=== PATIENT | male | born 1950 | race Caucasian/White ===

== ENCOUNTER 2020-02-17 19:35 | Emergency (ER) | payer MEDICARE ==
--- NOTE | 2020-02-17 20:21 | EDM.PDOC ---
ED HPI GENERAL MEDICAL PROBLEM - General Chief Complaint: Lower Extremity Injury/Pain Stated Complaint: slipped on ICE Time Seen by Provider: 02/17/20 20:10 Source of Information: Reports: Patient History Limitations: Reports: No Limitations - History of Present Illness INITIAL COMMENTS - FREE TEXT/NARRATIVE: This patient presents to the ED for evaluation of hip pain. He states he slipped on the ice and fell onto his left hip. 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 He is complaining of pain but has been able to bear weight. He denies other injuries; states he did not hit his head or lose consciousness. He denies recent illnesses including fever, cough, sore throat. He also denies nausea, vomiting, diarrhea. Left Hip Pain Score (Numeric/FACES): 7 - Related Data Allergies Allergy/AdvReac Type Severity Reaction Status Date / Time No Known Allergies Allergy Verified 02/17/20 20:18 Home Meds: Home Meds NK [No Known Home Meds] 02/17/20 [History] Review of Systems - Review of Systems Review Of Systems: Comprehensive ROS is negative, except as noted in HPI. ED EXAM, GENERAL - Physical Exam Exam: See Below Exam Limited By: No Limitations General Appearance: Alert, WD/WN, No Apparent Distress Eye Exam: Bilateral Eye: PERRL Ears: Normal External Exam Nose: Normal Inspection Throat/Mouth: Normal Inspection Head: Atraumatic, Normocephalic Neck: Normal Inspection Respiratory/Chest: No Respiratory Distress Extremities: Other (tenderness with palpation over greater trochanter left hip; no swelling, discoloration, or deformity, distal CMS intact. ) Course - Vital Signs Last Recorded V/S: Last Vital Signs Temp 36.6 C 02/17/20 19:42 Pulse 109 H 02/17/20 19:42 Resp 18 02/17/20 19:42 BP 109/75 02/17/20 19:42 Pulse Ox 99 02/17/20 19:42 - Orders/Labs/Meds Orders: Active Orders 24 hr Category Date Time Status Hip Min 2V or 3V w Pelvis Lt [CR] Stat Exams 02/17/20 20:18 Taken - Re-Assessments/Exams Free Text/Narrative Re-Assessment/Exam: 02/17/20 21:54 This patient presents for evaluation of left hip pain after a fall. CMS is intact distally in the extremity. X-rays reveal a new acute minimally displace left greater trochanteric fracture that does not need reduction at this time. The patients head to toe trauma exam is otherwise normal at this time and no further trauma workup is needed as I believe there is no signs of serious head, neck, chest, spinal, extremity or abdominal injuries. I spoke with Dr. Rivero , [facility] about this patient. He felt the patient should be transferred to their location for inpatient management. I then spoke with Dr. Beltre, [facility] Hospitalist who did agree to accept the patient in transfer. Arrangements were made for this patient to be transferred to [facility] by [facility], BLS. The patient was comfortable and stable at the time of discharge. 02/17/20 21:59 Departure - Departure Time of Disposition: 22:30 Disposition: DC/Tfer to Other 70 Condition: Good Clinical Impression: Fracture, proximal femur - Discharge Information Referrals: PCP,None [Primary Care Provider] - Forms: ED Department Discharge, Interfacility Transfer EMTALA Sepsis Event Note - Focused Exam Vital Signs: Vital Signs Temp Pulse Resp BP Pulse Ox 02/17/20 19:42 36.6 C 109 H 18 109/75 99 Date Exam was Performed: 02/17/20 Time Exam was Performed: 21:54 - My Orders Last 24 Hours: My Active Orders 02/17/20 20:18 Hip Min 2V or 3V w Pelvis Lt [CR] Stat - Assessment/Plan Last 24 Hours: My Active Orders 02/17/20 20:18 Hip Min 2V or 3V w Pelvis Lt [CR] Stat
--- NOTE | 2020-02-17 23:19 | CR ---
CLINICAL DATA: Fall. PELVIS AND LEFT HIP, 17 FEBRUARY 2020: Comparison is made to a prior exam dated December 29, 2013. The patient is status post left total hip arthroplasty. There is a lucency through the proximal left femur just inferior to the greater trochanter with cortical disruption, consistent with an acute nondisplaced fracture. No other acute abnormalities. There are mild osteoarthritic changes of the right hip joint. 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 Job: [id number] [facility]
== END 2020-02-17 22:35 | disposition other institution (70) ==
LOC: LB.ED 19:35
DX: S72.112A Displaced fracture of greater trochanter of left femur, initial encounter for closed fracture (principal); M97.02XA Periprosthetic fracture around internal prosthetic left hip joint, initial encounter; W00.0XXA Fall on same level due to ice and snow, initial encounter
CPT/HCPCS: 73501-LT; 73502-LT; 99284; 99284-25

== ENCOUNTER 2022-04-28 09:19 | Observation (INO) | payer MEDICARE ==
[2022-04-28 10:05] LABS: ESTIMATED GFR > 60 MLS/MIN (>60)
[2022-04-28 10:06] LABS: TROPONIN I HIGH SENSITIVITY < 4.0 pg/ml (<=60.4)
[2022-04-28] MEDS ORDERED: Acetaminophen 500 MG Tab PO ONE (10:28)
[2022-04-28] MEDS ORDERED: Sodium Chloride 0.9% 10 ML Syringe FLUSH PRN (10:34)
[2022-04-28] MEDS ORDERED: Sodium Chloride 0.9% 50 ML SDV FLUSH ONE (10:36)
[2022-04-28] MEDS ORDERED: Iopamidol 755 Mg/ML 100 ML Bottle IV SCH (10:45)
[2022-04-28] MEDS ORDERED: Aspirin 81 MG Tab.Chew PO ONE (10:57)
[2022-04-28] MEDS ORDERED: Sodium Chloride 0.9% 1,000 ML IV SCH (12:45)
[2022-04-28] MEDS: Sodium Chloride 0.9% 1,000 ML IV SCH (20:13)
[2022-04-29] MEDS: Acetaminophen 325 MG Tab PO PRN ×2 (03:50→16:33)
[2022-04-29] MEDS: Sodium Chloride 0.9% 1,000 ML IV SCH ×2 (06:13→14:48)
[2022-04-29 08:53] LABS: ESTIMATED GFR > 60 MLS/MIN (>60)
[2022-04-29 16:23] LABS: ESTIMATED GFR > 60 MLS/MIN (>60)
[2022-04-29] MEDS ORDERED: Sodium Chloride 0.9% 1,000 ML IV SCH (21:15)
[2022-04-30] MEDS ORDERED: Sodium Chloride 0.9% 500 ML IV SCH (06:30)
[2022-04-30 10:04] LABS: ESTIMATED GFR > 60 MLS/MIN (>60)
== END 2022-04-30 11:04 | disposition home or self-care (01) ==
LOC: LB.ED 09:19 → LB.MS 13:26
PROVIDERS: ADMIT Physician Assistant; ATTEND Physician Assistant
DX: E87.1 Hypo-osmolality and hyponatremia (principal); R91.8 Other nonspecific abnormal finding of lung field; Z87.891 Personal history of nicotine dependence; Z20.822 Contact with and (suspected) exposure to COVID-19
CPT/HCPCS: 36415; 71045; 71260; 80048; 84484; 85025; 85379; 87804; 93005; 96360; 96361; 99285; A9270; G0378; J7030; Q9967; U0002; 93010; 99217; 99219